=== PATIENT | male | born 1965 ===

== ENCOUNTER 2020-02-16 20:04 | Emergency (ER) | payer OTHER ==
[2020-02-16] MEDS ORDERED: diphenhydrAMINE 25 MG CAP ONE (20:28)
== END 2020-02-16 20:53 | disposition home or self-care (01) ==
LOC: MADERS 20:04
DX: T63.441A Toxic effect of venom of bees, accidental (unintentional), initial encounter (principal)
CPT/HCPCS: 96372; 99282; J1040; Q0163